=== PATIENT | male | born 1975 | race Caucasian/White ===

== ENCOUNTER 2024-10-03 21:17 | Inpatient (IN) | payer SELFPAY ==
[~2024-10-03] VITALS: Ht 165.1 cm; Wt 67.7 kg
[2024-10-03 21:23] VITALS: O2SAT 98
[2024-10-03 22:23] LABS: BASOPHILS % 0.9 % (0.0-2.0); DIFFERENTIAL COMMENT 1; EOSINOPHILS % 0.7 % (0.0-5.0); HEMATOCRIT. 35.3 % (42.0-52.0); HEMOGLOBIN. 11.5 g/dL (14.0-18.0); LYMPHOCYTES % 11.9 % (20.0-50.0); MEAN CORPUSCULAR HEMOGLOBIN 27.8 pg (28.0-32.0); MEAN CORPUSCULAR HGB CONC 32.6 g/dL (31.0-37.0); MEAN CORPUSCULAR VOLUME 85.3 fL (80.0-94.0); MONOCYTES % 10.3 % (2.0-8.0); NEUTROPHILS % 76.2 % (40.0-76.0); RED BLOOD CELL COUNT 4.14 mill/uL (4.7-6.1); WHITE BLOOD COUNT 5.6 x1000/uL (4.5-11.0)
[2024-10-03 22:32] LABS: CHLORIDE 96 mEq/L (98-107); POTASSIUM 3.6 mEq/L (3.5-5.1); SODIUM 131 mEq/L (136-145)
[2024-10-03 22:33] LABS: CALCIUM 9.1 mg/dL (8.7-10.4); CARBON DIOXIDE 23 mEq/L (21-32)
[2024-10-03 22:38] LABS: CREATININE 0.7 mg/dL (0.6-1.3); GLUCOSE 94 mg/dL (70-105); UREA NITROGEN BLOOD 6 mg/dL (9-23)
[2024-10-03 22:39] LABS: TROPONIN I HIGH SENSITIVITY 9 ng/L (3.0-53)
[2024-10-03 22:44] LABS: PLATELET 68 x1000/uL (130-400)
[2024-10-03] MEDS: LORAZEPAM 2MG/ML INJ IV ONE (23:28)
[2024-10-03] MEDS: LORAZEPAM 2MG/ML UD SYRINGE ONE (23:29)
[2024-10-03] MEDS: LEVETIRACETAM 1000MG PREMIX 100 ML IV ONE (23:30)
[2024-10-03] MEDS ORDERED: FOLIC ACID 1 MG, THIAMINE HCL 100 MG, MVI, ADULT NO.1 10 ML in DEXTROSE 5% WATER 1,000 ML IV ONE (23:45)
[2024-10-03] MEDS: MAGNESIUM 2 G PREMIX 50 ML IV ONE (23:45)
[2024-10-04 00:30] LABS: LACTIC ACID 10.7 mmol/L (0.4-2.0)
[2024-10-04] MEDS ORDERED: DIPHENHYDRAMINE 50MG/ML VIAL IV PRN (00:45)
[2024-10-04] MEDS ORDERED: CLONIDINE 0.1MG TABLET PO PRN (00:45)
[2024-10-04] MEDS ORDERED: GUAIFENESIN 200MG/10ML SUGAR FREE UDC PO PRN (00:45)
[2024-10-04] MEDS ORDERED: LORAZEPAM 2MG/ML UD SYRINGE IV PRN ×2 (00:45→05:15)
[2024-10-04] MEDS ORDERED: ONDANSETRON HCL 4MG/2ML INJ IV PRN (00:45)
[2024-10-04] MEDS ORDERED: IPRATROPIUM/ALBUTEROL 0.5-3(2.5)MG/3ML NEB HHN PRN (00:45)
[2024-10-04] MEDS ORDERED: DOCUSATE SODIUM 100MG CAPSULE PO PRN (00:45)
[2024-10-04] MEDS ORDERED: MAGNESIUM/ALUMINUM HYDROXIDE/SIMETHICONE 30ML UDC PO PRN (00:45)
[2024-10-04] MEDS ORDERED: KETOROLAC 15MG/ML VIAL IV PRN (01:00)
[2024-10-04 01:19] LABS: BG BASE EXCESS -2.1 mmol/L (-2.0-3.0); BG CARBOXYHEMOGLOBIN 0.9 % (0.5-1.5); BG DEOXYHEMOGLOBIN 4.2 % (0.0-5.0); BG HCO3 ACT 21.4 mmol/L (21.0-28.0); BG METHEMOGLOBIN 0.1 % (0.5-1.5); BG OXYGEN SATURATION 95.8 % (94.0-98.0); BG OXYHEMOGLOBIN 94.8 % (94.0-98.0); BG PCO2 32.9 mmHg (35.0-48.0); BG PH 7.432 (7.350-7.450); BG PO2 82.3 mmHg (83.0-108.0); BG SAMPLE SITE RIGHT BRACHIAL; BG TOTAL HEMOGLOBIN 12.1 g/dL (13.5-17.5); BG VENT MODE ROOM AIR
[2024-10-04 01:41] LABS: *AMPHETAMINES SCREEN URINE NEGATIVE (NEGATIVE); *BARBITURATES SCREEN URINE NEGATIVE (NEGATIVE); *BENZODIAZEPINES SCREEN URINE NEGATIVE (NEGATIVE); *COCAINE SCREEN URINE NEGATIVE (NEGATIVE); METHADONE URINE SCREEN NEGATIVE (NEGATIVE)
[2024-10-04 01:42] LABS: CANNABINOID URINE SCREEN NEGATIVE (NEGATIVE); CREATININE URINE RANDOM 89.3 mg/dL; ECSTASY MDMA SCREEN URINE NEGATIVE (NEGATIVE); OPIATES URINE SCREEN NEGATIVE (NEGATIVE); PHENCYCLIDINE URINE SCREEN NEGATIVE (NEGATIVE)
[2024-10-04] MEDS: LEVETIRACETAM 1000MG PREMIX 100 ML IV ONE (01:44)
[2024-10-04] MEDS: MAGNESIUM 2 G PREMIX 50 ML IV ONE (01:44)
[2024-10-04] MEDS: SODIUM CHLORIDE 0.9% 1,000 ML IV ONE (01:44)
[2024-10-04 01:53] LABS: CHLORIDE 97 mEq/L (98-107); POTASSIUM 3.7 mEq/L (3.5-5.1); SODIUM 133 mEq/L (136-145)
[2024-10-04 01:54] LABS: CALCIUM 8.6 mg/dL (8.7-10.4); CARBON DIOXIDE 23 mEq/L (21-32)
[2024-10-04 01:59] LABS: AMMONIA < 17 uMol/L (<32); CREATININE 0.6 mg/dL (0.6-1.3); GLUCOSE 118 mg/dL (70-105)
[2024-10-04 02:00] LABS: LDL CHOLESTEROL 48 mg/dL (5-100); TRIGLYCERIDE 47 mg/dL (0-150); UREA NITROGEN BLOOD 6 mg/dL (9-23)
[2024-10-04 02:01] LABS: ALANINE AMINOTRANSFERASE 37 IU/L (10-49); ALBUMIN 4.2 g/dL (3.2-4.8); ASPARTATE AMINOTRANSFERASE 61 IU/L (<34); CHOLESTEROL 173 mg/dL (<200); HDL CHOLESTEROL 108 mg/dL (>55)
[2024-10-04 02:02] LABS: BILIRUBIN TOTAL 0.7 mg/dL (0.1-1.0); PHOSPHORUS 2.3 mg/dL (2.5-4.9); PROTEIN TOTAL 6.6 g/dL (6.0-8.3); TOTAL IRON BINDING CAPACITY 244 ug/dl (250-425)
[2024-10-04 02:03] LABS: T4 FREE 0.97 ng/dL (0.89-1.76)
[2024-10-04 02:04] LABS: D-DIMER 11.09 mg/L FEU (<0.50); PROTHROMBIN TIME 10.9 sec (9.6-11.0); THYROID STIMULATING HORMONE 2.13 uIU/mL (0.55-4.78)
[2024-10-04 02:42] LABS: CLARITY URINE CLEAR (CLEAR); COLOR URINE YELLOW (YELLOW); GLUCOSE URINE NEGATIVE (NEGATIVE); PROTEIN URINE 2+ (NEGATIVE); SPECIFIC GRAVITY URINE 1.014 (1.005-1.030)
[2024-10-04 02:43] LABS: KETONES URINE 1+ (NEGATIVE); LEUKOCYTE ESTERASE URINE NEGATIVE (NEGATIVE); NITRITE URINE NEGATIVE (NEGATIVE); OCCULT BLOOD URINE NEGATIVE (NEGATIVE)
[2024-10-04 02:51] LABS: BACTERIA URINE NONE SEEN; RBC URINE 0-2 /hpf (0-2); SQUAMOUS EPITHELIAL CELL URINE FEW /lpf (RARE/1+); WBC URINE 0-2 /hpf (0-2)
[2024-10-04] MEDS ORDERED: LORAZEPAM 1MG TABLET PO PRN ×3 (03:00)
[2024-10-04] MEDS ORDERED: CHLORDIAZEPOXIDE 25MG CAPSULE PO PRN ×3 (03:00)
[2024-10-04 03:52] VITALS: BP 137/84; PULSE 95; RESP 18; TEMP 38.2
[2024-10-04 03:58] LABS: FERRITIN 156 ng/mL (22-322)
[2024-10-04 04:03] LABS: VITAMIN B12 SERUM 630 pg/mL (211-911)
[2024-10-04 04:11] LABS: HEPATITIS B SURFACE ANTIGEN NEGATIVE (Negative)
[2024-10-04 04:32] LABS: HEPATITIS A AB IGM NEGATIVE (Negative)
[2024-10-04 04:33] LABS: HEPATITIS B CORE AB IGM NEGATIVE (Negative)
[2024-10-04 04:34] LABS: HEPATITIS C AB NON REACTIVE (Neg) (Negative)
[2024-10-04] MEDS: CHLORDIAZEPOXIDE 25MG CAPSULE PO SCH (06:31)
[2024-10-04 08:00] VITALS: BP 129/82; PULSE 61; RESP 18; TEMP 36.8; O2SAT 97
[2024-10-04] MEDS: LACTATED RINGERS 1,000 ML IV ONE (10:00)
[2024-10-04] MEDS: PANTOPRAZOLE SODIUM 40 MG/VIAL IV SCH (10:42)
[2024-10-04] MEDS: ENOXAPARIN 40MG/0.4ML SYR SUBCUT SCH (10:44)
[2024-10-04] MEDS: FOLIC ACID 1 MG, THIAMINE HCL 100 MG, MVI, ADULT NO.1 10 ML in DEXTROSE 5% WATER 1,000 ML IV ONE (10:48)
[2024-10-04 10:51] LABS: BASOPHILS % 0.5 % (0.0-2.0); EOSINOPHILS % 0.3 % (0.0-5.0); HEMATOCRIT. 35.7 % (42.0-52.0); HEMOGLOBIN. 11.9 g/dL (14.0-18.0); LYMPHOCYTES % 10.4 % (20.0-50.0); MEAN CORPUSCULAR HEMOGLOBIN 28.2 pg (28.0-32.0); MEAN CORPUSCULAR HGB CONC 33.3 g/dL (31.0-37.0); MEAN CORPUSCULAR VOLUME 84.7 fL (80.0-94.0); MEAN PLATELET VOLUME 9.9 fl (7.4-10.4); MONOCYTES % 11.4 % (2.0-8.0); NEUTROPHILS % 77.4 % (40.0-76.0); PLATELET 98 x1000/uL (130-400); RED BLOOD CELL COUNT 4.22 mill/uL (4.7-6.1); RED CELL DISTRIBUTION WIDTH 13.7 % (11.6-14.6); WHITE BLOOD COUNT 6.8 x1000/uL (4.5-11.0)
[2024-10-04 11:16] LABS: LACTATE DEHYDROGENASE 217 IU/L (120-246)
[2024-10-04 12:00] VITALS: BP 130/92; PULSE 59; RESP 18; TEMP 36.8; O2SAT 98
[2024-10-04 12:48] LABS: IRON 97 ug/dL (65-175)
[2024-10-04 13:17] LABS: CREATINE KINASE 494 IU/L (46-171)
[2024-10-04] MEDS: MAGNESIUM 2 G PREMIX 50 ML IV SCH ×2 (13:30→14:55)
[2024-10-04] MEDS: SODIUM PHOSPHATE 30 MMOL in DEXT 5% WATER 490 ML IV SCH (14:54)
[2024-10-04 16:00] VITALS: BP 125/85; PULSE 87; RESP 18; TEMP 36.9; O2SAT 97
[2024-10-04 16:11] LABS: CREATINE KINASE MB FRACTION 1.6 ng/mL (0.5-3.6)
[2024-10-04 16:36] LABS: GAMMA GLUTAMYL TRANSPEPTIDASE 92 IU/L (<73)
[2024-10-04 20:00] VITALS: BP 107/73; PULSE 69; RESP 20; TEMP 36.7; O2SAT 100
[2024-10-05] VITALS: BP 132/83; PULSE 66; RESP 20; TEMP 36.7; O2SAT 98
[2024-10-05 04:00] VITALS: BP 108/82; PULSE 70; RESP 20; TEMP 37.2; O2SAT 98
[2024-10-05] MEDS: CHLORDIAZEPOXIDE 25MG CAPSULE PO SCH (06:15)
[2024-10-05 08:00] VITALS: BP 137/92; PULSE 76; RESP 18; TEMP 36.3; O2SAT 96
[2024-10-05] MEDS ORDERED: THIAMINE HCL 100 MG/1 ML 2ML VIAL IM SCH (09:00)
[2024-10-05] MEDS: FOLIC ACID 1MG TABLET PO SCH (09:36)
[2024-10-05] MEDS: MULTIVITAMINS,THER W-MINERALS TABLET PO SCH (09:36)
[2024-10-05 10:28] LABS: BASOPHILS % 0.6 % (0.0-2.0); CHLORIDE 97 mEq/L (98-107); EOSINOPHILS % 2.4 % (0.0-5.0); HEMATOCRIT. 36.1 % (42.0-52.0); HEMOGLOBIN. 11.8 g/dL (14.0-18.0); LYMPHOCYTES % 12.3 % (20.0-50.0); MEAN CORPUSCULAR HEMOGLOBIN 27.8 pg (28.0-32.0); MEAN CORPUSCULAR HGB CONC 32.7 g/dL (31.0-37.0); MEAN CORPUSCULAR VOLUME 85.2 fL (80.0-94.0); MONOCYTES % 11.8 % (2.0-8.0); NEUTROPHILS % 72.9 % (40.0-76.0); POTASSIUM 4.2 mEq/L (3.5-5.1); RED BLOOD CELL COUNT 4.24 mill/uL (4.7-6.1); RED CELL DISTRIBUTION WIDTH 13.8 % (11.6-14.6); SODIUM 135 mEq/L (136-145)
[2024-10-05 10:32] LABS: CALCIUM 8.8 mg/dL (8.7-10.4); CARBON DIOXIDE 28 mEq/L (21-32); DIFFERENTIAL COMMENT 1
[2024-10-05 10:34] LABS: UREA NITROGEN BLOOD 7 mg/dL (9-23)
[2024-10-05 10:36] LABS: ALANINE AMINOTRANSFERASE 29 IU/L (10-49); ALBUMIN 4.3 g/dL (3.2-4.8)
[2024-10-05 10:37] LABS: ASPARTATE AMINOTRANSFERASE 46 IU/L (<34); CREATININE 0.7 mg/dL (0.6-1.3); GLUCOSE 96 mg/dL (70-105)
[2024-10-05 10:39] LABS: BILIRUBIN DIRECT 0.5 mg/dL (<=3.0); PHOSPHORUS 3.6 mg/dL (2.5-4.9)
[2024-10-05 10:40] LABS: BILIRUBIN TOTAL 1.5 mg/dL (0.1-1.0); PROTEIN TOTAL 6.9 g/dL (6.0-8.3)
[2024-10-05 11:21] LABS: PLATELET 76 x1000/uL (130-400)
[2024-10-05 11:40] VITALS: BP 100/65; PULSE 76; TEMP 97.4
[2024-10-07] MEDS ORDERED: THIAMINE HCL 100MG TABLET PO SCH (09:00)
== END 2024-10-05 11:54 | disposition home or self-care (01) | DRG 204 ==
LOC: ER 21:17 → 5WST 10-04 00:35 → EDBEDREQTM 10-04 00:42 → EDBEDREQ 10-04 00:42 → ENRESERV 10-04 00:47
PROVIDERS: ADMIT Hospitalist; ATTEND Hospitalist
DX: I95.1 Orthostatic hypotension (principal); G92.8 Other toxic encephalopathy; E87.20 Acidosis, unspecified; D69.59 Other secondary thrombocytopenia; E83.39 Other disorders of phosphorus metabolism; E87.1 Hypo-osmolality and hyponatremia; D64.9 Anemia, unspecified; S01.81XA Laceration without foreign body of other part of head, initial encounter; E83.42 Hypomagnesemia; F10.129 Alcohol abuse with intoxication, unspecified; F17.200 Nicotine dependence, unspecified, uncomplicated; M54.50 Low back pain, unspecified; Y90.3 Blood alcohol level of 60-79 mg/100 ml; G40.89 Other seizures; W18.39XA Other fall on same level, initial encounter; Z79.899 Other long term (current) drug therapy; Y93.89 Activity, other specified; Y92.89 Other specified places as the place of occurrence of the external cause; Y99.8 Other external cause status
CPT/HCPCS: 36415; 36600; 71045; 80048; 80053; 80061; 80076; 80305; 80320; 81003; 82140; 82306; 82375; 82436; 82550; 82553; 82570; 82607; 82728; 82805; 82977; 83036; 83540; 83550; 83605; 83615; 83735; 83880; 83930; 83935; 84100; 84300; 84439; 84443; 84484; 85025; 85379; 86705; 86709; 87340; 93005; 93970; 99291; J1650; J1953; J2060; J2470; J3411; J3475; J3490; J7030; J7060; J7070; G0480

== ENCOUNTER 2025-03-17 18:27 | Emergency (ER) | payer MEDICAID ==
[~2025-03-17] VITALS: Ht 167.6 cm; Wt 70.0 kg
[2025-03-17 18:33] VITALS: TEMP 36.7; O2SAT 98
[2025-03-17 20:13] LABS: BASOPHILS % 0.8 % (0.0-2.0); EOSINOPHILS % 1.9 % (0.0-5.0); HEMATOCRIT. 35.9 % (42.0-52.0); HEMOGLOBIN. 11.7 g/dL (14.0-18.0); LYMPHOCYTES % 22.0 % (20.0-50.0); MEAN PLATELET VOLUME 9.1 fl (7.4-10.4); MONOCYTES % 12.1 % (2.0-8.0); NEUTROPHILS % 63.2 % (40.0-76.0); PLATELET 159 x1000/uL (130-400); RED BLOOD CELL COUNT 4.24 mill/uL (4.7-6.1); RED CELL DISTRIBUTION WIDTH 13.3 % (11.6-14.6)
[2025-03-17 20:32] LABS: CREATININE 0.7 mg/dL (0.6-1.3); UREA NITROGEN BLOOD 5 mg/dL (9-23)
[2025-03-17 20:55] VITALS: BP 128/83; PULSE 88; RESP 12; O2SAT 99
== END 2025-03-17 20:59 | disposition home or self-care (01) ==
LOC: ER 18:45
DX: R04.0 Epistaxis (principal); I10 Essential (primary) hypertension
CPT/HCPCS: 30901; 36415; 80048; 85025; 86850; 86900; 99284

== ENCOUNTER 2025-03-19 07:31 | Emergency (ER) | payer MEDICAID ==
[~2025-03-19] VITALS: Ht 167.6 cm; Wt 68.0 kg
[2025-03-19 07:42] VITALS: O2SAT 99
[2025-03-19 08:17] VITALS: BP 145/95; PULSE 99; RESP 17; TEMP 37; O2SAT 99
== END 2025-03-19 08:18 | disposition home or self-care (01) ==
LOC: ER 07:31
DX: J34.89 Other specified disorders of nose and nasal sinuses (principal); F10.90 Alcohol use, unspecified, uncomplicated; Y90.9 Presence of alcohol in blood, level not specified
CPT/HCPCS: 99282